=== PATIENT | male | born 1990 | race African-American/Black ===

== ENCOUNTER 2024-08-26 16:22 | Emergency (ER) | payer MEDICAID, OTHER ==
[~2024-08-26] VITALS: Ht 185.4 cm; Wt 87.0 kg
[2024-08-26 16:43] VITALS: O2SAT 99
[2024-08-26 16:49] VITALS: BP 150/97; PULSE 64; RESP 18; TEMP 97.8; O2SAT 100
== END 2024-08-26 19:04 | disposition home or self-care (01) ==
LOC: ER 16:22
DX: B34.9 Viral infection, unspecified (principal)
CPT/HCPCS: 71045; 99283